=== PATIENT | female | born 1950 | race Caucasian/White ===

== ENCOUNTER → 2019-01-29 | Outpatient (CLI) | payer MEDICARE, OTHER ==
[~2019-01-29] MED LIST: ALPR0.5T8 PO; BENA1TAB18 PO; CHLO375T PO; DICL2100G TP; DULO30CA51 PO; FELO10TA31 PO; GEMF600T5 PO; HYDR-4068 PO; ROSU20TA23 PO; SERT100T12 PO; [UNRECOGNIZED DRUG - OTHER] PO
== END | disposition home or self-care (01) ==
LOC: RAH 14:17
PROVIDERS: ATTEND Internal Medicine
DX: Z12.31 Encounter for screening mammogram for malignant neoplasm of breast (principal)
CPT/HCPCS: 77067